=== PATIENT | female | born 2000 | race Hispanic/Latino ===

== ENCOUNTER 2021-12-02 09:32 | Emergency (ER) | payer OTHER ==
[~2021-12-02] VITALS: Ht 160 cm; Wt 111.1 kg
[2021-12-02] MEDS ORDERED: SODIUM CHLORIDE 0.9% 1000ML 1,000 ML IV STA (09:40)
[2021-12-02 09:55] LABS: BASOPHILS % 0.3 % (0.0-1.0); EOSINOPHILS # (AUTO) 0.1 (0.0-0.4); EOSINOPHILS % 0.8 % (0.0-6.0); HEMATOCRIT 34.9 % (34.2-44.1); LYMPHOCYTES # (AUTO) 2.4 (1.0-3.2); LYMPHOCYTES % 20.5 % (18.0-39.1); MEAN CORPUSCULAR HEMOGLOBIN 24.6 pg (28-32); MEAN CORPUSCULAR HGB CONC 31.5 g/dL (31-35); MEAN CORPUSCULAR VOLUME 78.1 fL (81-99); MONOCYTES # (AUTO) 0.6 (0.2-0.8); MONOCYTES % 4.9 % (4.4-11.3); NEUTROPHILS # (AUTO) 8.8 (2.1-6.9); NEUTROPHILS % 73.2 % (38.7-80.0); PLATELET COUNT 331 x10e3/uL (140-360); RED BLOOD COUNT 4.47 x10e6/uL (3.6-5.1); RED CELL DISTRIBUTION WIDTH 15.3 % (11.7-14.4)
[2021-12-02 10:15] LABS: CLARITY,URINE TURBID (CLEAR); COLOR,URINE YELLOW (YELLOW); KETONES,URINE TRACE (NEGATIVE); LEUKOCYTE ESTERASE ,URINE NEGATIVE (NEGATIVE); NITRITE,URINE NEGATIVE (NEGATIVE); PROTEIN,URINE DIPSTICK TRACE (NEGATIVE)
[2021-12-02 10:16] LABS: BACTERIA,URINE MODERATE /HPF; EPITHELIAL CELLS,URINE MANY /LPF; RBC,URINE 0-5 /HPF (0-5); URINE UROBILINOGEN 0.2 mg/dL (0.2 - 1); WBC,URINE (MAN) 0-5 /HPF (0-5)
[2021-12-02 10:20] LABS: ANION GAP 15.5 mmol/L (8-16); BLOOD UREA NITROGEN < 5 mg/dL (7-26); CALCIUM 8.6 mg/dL (8.4-10.2); CARBON DIOXIDE 18 mmol/L (22-29); CHLORIDE 110 mmol/L (98-107); CREATININE, SERUM 0.59 mg/dL (0.57-1.11); GLUCOSE 92 mg/dL (74-118); POTASSIUM 3.5 mmol/L (3.5-5.1); SODIUM 140 mmol/L (136-145)
[2021-12-02 10:25] LABS: BUN/CREATININE RATIO 8 (6-25)
[2021-12-02 10:44] LABS: HCG,QUANTITATIVE 20373.05 mIU/mL (0-10)
[2021-12-02 10:47] LABS: AMPHETAMINES SCREEN,URINE NEGATIVE (NEGATIVE); BENZODIAZEPINES SCREEN,URINE NEGATIVE (NEGATIVE); PHENCYCLIDINE SCREEN,URINE NEGATIVE (NEGATIVE)
== END 2021-12-02 14:18 | disposition home or self-care (01) ==
LOC: ER 10:01
DX: O20.0 Threatened abortion (principal)
CPT/HCPCS: 36415; 76805; 80048; 80307; 81001; 84702; 85025; 87086; 99284; J7030

== ENCOUNTER 2021-12-04 18:13 | Emergency (ER) | payer OTHER ==
[~2021-12-04] VITALS: Ht 160 cm; Wt 111.1 kg
[2021-12-04] MEDS ORDERED: ACETAMINOPHEN 325 MG TAB PO ONE (18:30)
== END 2021-12-04 21:01 | disposition home or self-care (01) ==
LOC: ER 18:23
DX: O98.512 Other viral diseases complicating pregnancy, second trimester (principal); U07.1 COVID-19; R50.9 Fever, unspecified
CPT/HCPCS: 99283; U0002